=== PATIENT | male | born 1960 | race Caucasian/White ===

== ENCOUNTER 2019-10-21 08:47 | Emergency (ER) | payer OTHER ==
--- NOTE | 2019-10-21 08:51 | ERPHSYRPT ---
- History of Present Illness Time Seen by Provider: 10/21/19 08:51 Source: patient Exam Limitations: no limitations Physician History: This is a 59-year-old white male who is right-handed and presents to the emergency room with a 2 to 3-day history of right elbow pain and mild swelling. Patient does not recall injuring his right elbow. 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 He did notice a couple days ago there was a area that appeared to be an infection and he squeezed white fluid from it. The pain and swelling has not subsided. Patient has not had fevers. Occurred: days ago (2-3) Method of Injury: unknown Quality: aching Severity of Pain-Max: mild Severity of Pain-Current: mild Extremities Pain Location: elbow: right Modifying Factors: Improves With: movement Associated Symptoms: none Allergies/Adverse Reactions: No Known Drug Allergies Allergy (Verified 10/21/19 09:02) Home Medications: Cyclobenzaprine HCl [Flexeril] 5 mg PO TID PRN 10/21/19 [History] Gabapentin 300 mg PO TID 10/21/19 [History] Meloxicam [Mobic] 15 mg PO DAILY 10/21/19 [History] Rosuvastatin Calcium [Crestor] 10 mg PO DAILY 10/21/19 [History] Travel Risk - International Travel Have you traveled outside of the country in past 3 weeks: No - Coronavirus Screening Are you exhibiting any of the following symptoms?: No Close contact with a COVID-19 positive Pt in past 14-21 Days: No - Review of Systems Constitutional: No Symptoms Eyes: No Symptoms Ears, Nose, & Throat: No Symptoms Respiratory: No Symptoms Cardiac: No Symptoms Abdominal/Gastrointestinal: No Symptoms Genitourinary Symptoms: No Symptoms Musculoskeletal: Joint Pain (Right elbow), Joint Swelling (Mild right elbow) Skin: Other (Right elbow skin with mild redness and mild swelling) Neurological: No Symptoms Psychological: No Symptoms Endocrine: No Symptoms Hematologic/Lymphatic: No Symptoms Immunological/Allergic: No Symptoms All Other Systems: Reviewed and Negative - Past Medical History Pertinent Past Medical History: No Neurological History: No Pertinent History ENT History: No Pertinent History Cardiac History: No Pertinent History Respiratory History: No Pertinent History Endocrine Medical History: No Pertinent History Musculoskeletal History: No Pertinent History GI Medical History: No Pertinent History History: No Pertinent History Psycho-Social History: No Pertinent History Male Reproductive Disorders: No Pertinent History - Past Surgical History Past Surgical History: No Neuro Surgical History: No Pertinent History Cardiac: No Pertinent History Respiratory: No Pertinent History Gastrointestinal: No Pertinent History Genitourinary: No Pertinent History Musculoskeletal: No Pertinent History Male Surgical History: No Pertinent History - Nursing Vital Signs Nursing Vital Signs: Initial Vital Signs Temperature 98.3 F 10/21/19 08:51 Pulse Rate 82 10/21/19 08:51 Blood Pressure 133/79 10/21/19 08:51 O2 Sat by Pulse Oximetry 96 10/21/19 08:51 Pain Scale Pain Intensity 2 - Physical Exam General Appearance: no apparent distress, alert, anxiety Eyes, Ears, Nose, Throat Exam: normal ENT inspection, moist mucous membranes Neck Exam: normal inspection, non-tender, supple, full range of motion Cardiovascular/Respiratory Exam: chest non-tender Abdominal Exam: non-tender Back Exam: normal inspection, normal range of motion, No CVA tenderness, No vertebral tenderness Shoulder Exam: normal inspection, non-tender, no evidence of injury, normal ROM Elbow/Forearm Exam: no evidence of injury, normal ROM, bone tenderness (Mild at the elbow on the right side), soft tissue tenderness (Mild at the elbow right side), swelling (Mild at the elbow with mild redness present on the right side) Wrist Exam: normal inspection, non-tender, no evidence of injury, normal ROM Hand Exam: normal inspection, non-tender, no evidence of injury, normal ROM Neuro/Tendon Exam: normal sensation, normal motor functions, normal tendon functions Mental Status Exam: alert, oriented x 3, cooperative Skin Exam: other (Right elbow with some tenderness at the elbow. The skin shows possible localized cellulitis with an area of possible folliculitis) SpO2 Interpretation: normal O2 Delivery: Room Air - Course Nursing assessment & vital signs reviewed: Yes Ordered Tests: Active Orders 24 hr Category Date Time Status ELBOW (MINIMUM 3 VIEWS) Stat Exams 10/21/19 09:03 Completed - Progress Progress: unchanged, pain not gone completely Progress Note: 10/21/19 09:47 X-ray of the right elbow shows mild posterior soft tissue swelling. There is an olecranon spur present. No acute fracture or dislocation present Counseled pt/family regarding: diagnosis, need for follow-up, rad results - Departure Departure Disposition: Home Clinical Impression: Cellulitis of right elbow Condition: Stable Critical Care Time: No Referrals: SOBIA CONROY [Primary Care Provider] - Additional Instructions: Alternate ice pack and warm compresses to right elbow 3-4 times a day for the next 48 hours. Take medication as prescribed. Follow-up with your primary care for persistent symptoms. Prescriptions: Hydrocodone/APAP 5/325 [[place] 5/325 mg] 1 each PO Q8H PRN PRN #6 tablet MDD 3 PRN Reason: Pain Smz/Tmp Ds Tablet [Bactrim Ds Tablet] 1 udtab PO BID #14 tablet
[2019-10-21 09:01] VITALS: BP 133/79; PULSE 82; O2SAT 96
--- NOTE | 2019-10-21 09:38 | XRAY ---
Indication: Posterior pain and swelling. No known injury. Comparison: None 3 view right elbow demonstrates mild posterior soft tissue swelling and tiny olecranon process spur. No other bony, articular, or soft tissue abnormalities.
== END 2019-10-21 09:58 | disposition home or self-care (01) ==
LOC: ED 08:47
DX: L03.113 Cellulitis of right upper limb (principal)
CPT/HCPCS: 73080; 99283